=== PATIENT | female | born 1980 | race Caucasian/White ===

== ENCOUNTER 2025-01-21 09:28 | Emergency (ER) | payer MEDICAID, OTHER ==
[~2025-01-21] VITALS: Ht 162.6 cm; Wt 96.5 kg
[2025-01-21 09:30] VITALS: BP 142/78; TEMP 97.4; O2SAT 93
[2025-01-21] MEDS ORDERED: ARIP10TA63 (09:37)
[2025-01-21] MEDS ORDERED: BUSP10TA (09:37)
[2025-01-21] MEDS ORDERED: MULT-90 PO (09:37)
[2025-01-21] MEDS ORDERED: VENL150C43 (09:37)
== END 2025-01-21 11:16 | disposition left against medical advice (07) ==
LOC: M ED 09:28
DX: Z53.21 Procedure and treatment not carried out due to patient leaving prior to being seen by health care provider (principal)